=== PATIENT | female | born 1970 | race African-American/Black ===

== ENCOUNTER 2017-09-05 06:23 | Emergency (ER) | payer SELFPAY ==
[~2017-09-05] VITALS: Ht 182.9 cm; Wt 86.0 kg
[~2017-09-05 06:23] MED LIST: Z.0.NO CURRENT MEDS
[2017-09-05 06:25] VITALS: BP 121/83; PULSE 100; RESP 16; TEMP 98.9; O2SAT 100
[2017-09-05] MEDS ORDERED: BENZ100 PO (06:37)
[2017-09-05] MEDS ORDERED: IPRA0.06 EACH NARE (06:37)
[2017-09-05] MEDS ORDERED: AMOX875T PO (06:37)
--- NOTE | 2017-09-05 06:37 | PD ---
HPI Chief Complaint: Cold / Flu Symptoms Time Seen by Provider: 06:35 Travel History International Travel<30 days: No Contact w/Intl Traveler<30days: No Traveled to known affect area: No History of Present Illness HPI Patient is a 46-year-old female presented to the emergency department for evaluation of 5 days of nasal congestion, runny nose, body aches, headache. Patient states her symptoms started Jaron, she reports a subjective fever that day but none since. She has been taking Sudafed intermittently with some relief of symptoms. She has had no nausea, vomiting, abdominal pain, shortness of breath, chest pain. She reports a dry, nonproductive cough. Symptom onset was gradual, they are somewhat alleviated with [id number] medications. PFSH Past Medical History Medical History: Denies Significant Hx Diminished Hearing: No Tetanus Vaccination: > 5 Years Influenza Vaccination: No ?: Not LMP: 08/15/17 : 1 Para: 1 Past Surgical History Surgical History: No Previous Surgery Social History Alcohol Use: No Tobacco Use: No Substance Use: No Allergies-Medications (Allergen,Severity, Reaction): Coded Allergies: No Known Allergies (Verified Adverse Reaction, Unknown, 09/05/17) Reported Meds & Prescriptions Reported Meds & Active Scripts Active Tessalon Perles (Benzonatate) 100 Mg Cap 100 Mg PO TID PRN Ipratropium Nasal 0.06% Thomson 1 Thomson EACH NARE QID Amoxicillin 875 Mg Tab 875 Mg PO BID 10 Days Review of Systems Except as stated in HPI: all other systems reviewed are Neg General / Constitutional: No: Fever HENT: Positive: Headaches, Rhinitis, Congestion, No: Sore Throat Cardiovascular: No: Chest Pain or Discomfort Respiratory: No: Shortness of Breath Gastrointestinal: No: Nausea, Vomiting, Abdominal Pain Musculoskeletal: Positive: Myalgias Neurologic: No: Weakness, Dizziness, Syncope, Focal Abnormalities Physical Exam Narrative GENERAL: Well-developed, well-nourished, well-appearing -Portuguese female. Presenting in no acute distress. SKIN: Warm and dry. HEAD: Atraumatic. Normocephalic. EYES: Pupils equal and round. No scleral icterus. No injection or drainage. ENT: No nasal bleeding or discharge. Mucous membranes pink and moist. NECK: Trachea midline. No JVD. CARDIOVASCULAR: Regular rate and rhythm. RESPIRATORY: No accessory muscle use. Clear to auscultation. Breath sounds equal bilaterally. GASTROINTESTINAL: Abdomen soft, non-tender, nondistended. Hepatic and splenic margins not palpable. MUSCULOSKELETAL: Extremities without clubbing, cyanosis, or edema. No obvious deformities. NEUROLOGICAL: Awake and alert. No obvious cranial nerve deficits. Motor grossly within normal limits. Five out of 5 muscle strength in the arms and legs. Normal speech. PSYCHIATRIC: Appropriate mood and affect; insight and judgment normal. Data Data Last Documented VS Vital Signs Date Time Temp Pulse Resp B/P (MAP) Pulse Ox O2 Delivery O2 Flow Rate FiO2 09/05/17 06:25 98.9 100 16 121/83 (96) 100 Room Air Orders Orders Ed Discharge Order (09/05/17 06:37) MDM Medical Decision Making Medical Screen Exam Complete: Yes Emergency Medical Condition: Yes Interpretation(s) Vital Signs Date Time Temp Pulse Resp B/P (MAP) Pulse Ox O2 Delivery O2 Flow Rate FiO2 09/05/17 06:25 98.9 100 16 121/83 (96) 100 Room Air Differential Diagnosis Viral syndrome versus influenza versus bronchitis versus other Narrative Course Patient is a 46-year-old female presenting for evaluation of cold and flulike symptoms. Symptoms appear to be resolving as she had a fever initially but that resolved. She continues to have lingering body aches, headache, congestion. Patient was encouraged to continue symptom management. She was advised that symptoms may last 7-10 days. She was encouraged to follow-up with her primary doctor. She was given a prescription for backup antibiotic however she is encouraged to continue watchful waiting for another 3-4 days. She was advised that antibiotics will not help viral illnesses. She was encouraged to complete full course of antibiotics if she did choose to start it or needed to start it. She verbalized understanding of these instructions. Patient stable for discharge. Diagnosis Primary Impression: URI (upper respiratory infection) Qualified Codes: J06.9 - Acute upper respiratory infection, unspecified Referrals: [facility] Patient Instructions: General Instructions, Upper Respiratory Infection (ED) Additional Instructions: Follow-up with your primary doctor or at the [facility] [address] [facility] Return to emergency department for any new or worsening symptoms Continue symptom management as discussed Try [id number] Mucinex DM or similar agent If you begin antibiotics, complete full course of therapy to avoid antibiotic resistance Med/Other Pt SpecificInfo: Prescription(s) given Scripts Benzonatate (Tessalon Perles) 100 Mg Cap 100 MG PO TID Y for COUGH, #12 CAP 0 Refills Prov: Lynda Peralta 09/05/17 Ipratropium Nasal (Ipratropium Nasal) 0.06% Thomson 1 SPRAY EACH NARE QID, #1 BOTTLE 0 Refills Prov: Lynda Peralta 09/05/17 Amoxicillin (Amoxicillin) 875 Mg Tab 875 MG PO BID for Infection for 10 Days, #20 TAB 0 Refills Prov: Lynda Peralta 09/05/17 Disposition: 01 DISCHARGE HOME Condition: Stable Lynda Peralta Sep 05, 2017 06:37
== END 2017-09-05 06:51 | disposition home or self-care (01) ==
LOC: NEPD 06:23
DX: J06.9 Acute upper respiratory infection, unspecified (principal)
CPT/HCPCS: 99283